=== PATIENT | male | born 1985 | race Caucasian/White ===

== ENCOUNTER 2016-10-30 09:34 | Emergency (ER) | payer MEDICAID ==
[~2016-10-30] VITALS: Ht 177.8 cm; Wt 69.7 kg
[2016-10-30 09:37] VITALS: BP 122/74
[2016-10-30] MEDS ORDERED: METHOCARBAMOL 750 MG TABLET ONE (10:15)
[2016-10-30] MEDS ORDERED: METHOCARBAMOL 750 MG TABLET PO ONE (10:30)
== END 2016-10-30 11:39 | disposition home or self-care (01) ==
LOC: ED 10:52
DX: M54.12 Radiculopathy, cervical region (principal); E11.9 Type 2 diabetes mellitus without complications; I10 Essential (primary) hypertension; F17.200 Nicotine dependence, unspecified, uncomplicated; Z91.013 Allergy to seafood
CPT/HCPCS: 72050; 99284; J7512